=== PATIENT | male | born 1975 | race Caucasian/White ===

== ENCOUNTER 2020-09-07 10:18 | Outpatient (REF) | payer OTHER, SELFPAY ==
[2020-09-07 10:40] LABS: MANUAL DIFF FLAG NO
[2020-09-07 11:09] LABS: Basophils Percent Auto 0.5 % (0-2); Eosinophils Absolute Auto 0.2 X10*3/uL (0.0-0.4); Eosinophils Percent Auto 3.5 % (0-4); Hematocrit 49.6 % (42-52); Hemoglobin 16.7 g/dl (14.0-18.0); Imm Gran Abs Auto 0.03 X10*3/uL (0.00-0.03); Imm Gran Pct Auto 0.5 % (0.0-0.4); Lymphocytes Absolute Auto 2.5 X10*3/uL (1.2-4.9); Lymphocytes Percent Auto 37.6 % (20-40); Mean Corpuscular HGB Conc 33.7 g/dl (31.0-36.0); Mean Corpuscular Hemoglobin 29.9 pg (27.0-33.0); Mean Corpuscular Volume 88.9 fL (80-98); Mean Platelet Volume 10.6 fL (9.4-12.4); Monocytes Absolute Auto 0.6 X10*3/uL (0.1-1.2); Monocytes Percent Auto 9.3 % (2-11); Neutrophils Absolute Auto 3.2 X10*3/uL (2.0-8.3); Neutrophils Percent Auto 48.6 % (45-73); Platelet Count 206 X10*3/uL (160-400); Red Blood Count 5.58 X10*6/uL (4.60-5.80); Red Cell Distribution Width 12.2 % (11.0-16.0); White Blood Count 6.6 X10*3/uL (4.8-10.8)
[2020-09-07 11:40] LABS: Glucose Urine UA NEG (NEG); Leukocyte Esterase Urine NEG (NEG); Nitrite Urine NEG (NEG); Specific Gravity - Urine 1.025 (1.005-1.025); Urine Blood NEG (NEG); Urine Ketones NEG (NEG); Urine Protein NEG (NEG-TRACE)
[2020-09-07 11:43] LABS: Appearance Urine CLEAR; Color Urine YELLOW
[2020-09-07 12:18] LABS: PSA,Total (Free>4and<10) 0.35 ng/mL (0.00-4.00)
[2020-09-07 12:35] LABS: Alanine Aminotransferase 16 U/L (0-40); Albumin Level 4.2 g/dL (3.5-5.0); Alkaline Phosphatase 65 U/L (39-117); Anion Gap 16 (12-20); Aspartate Amino Transferase 16 U/L (5-37); Blood Urea Nitrogen 20 mg/dL (9-16); Calcium 9.1 mg/dL (8.4-10.2); Carbon Dioxide 23 mmol/L (22-29); Chloride 106 mmol/L (96-108); Cholesterol 243 mg/dL; Estimated Glomerular Filt Rate > 60; Glucose Fasting 101 mg/dL (60-99); HDL Cholesterol 66 mg/dL; LDL Cholesterol Calculated 147 mg/dl; Sodium 141 mmol/L (135-145); Total Protein 6.9 g/dL (6.5-8.0); Triglycerides 152 mg/dL
== END 2020-09-07 10:19 | disposition home or self-care (01) ==
LOC: HO.LNP 10:18
PROVIDERS: Visit Provider Internal Medicine
DX: Z00.00 Encounter for general adult medical examination without abnormal findings (principal); Z12.5 Encounter for screening for malignant neoplasm of prostate; E78.6 Lipoprotein deficiency
CPT/HCPCS: 80053; 80061; 81003; 84153; 85025

== ENCOUNTER 2021-11-14 10:49 | Outpatient (REF) | payer OTHER, SELFPAY ==
[2021-11-14 10:51] LABS: MANUAL DIFF FLAG NO
[2021-11-14 11:07] LABS: Appearance Urine CLEAR; Color Urine YELLOW; Glucose Urine UA NEG (NEG); Leukocyte Esterase Urine NEG (NEG); Nitrite Urine NEG (NEG); Urine Blood NEG (NEG); Urine Ketones NEG (NEG); Urine Protein NEG (NEG-TRACE)
[2021-11-14 11:08] LABS: Basophils Absolute Auto 0.1 X10*3/uL (0.0-0.2); Basophils Percent Auto 0.9 % (0-2); Eosinophils Absolute Auto 0.1 X10*3/uL (0.0-0.4); Eosinophils Percent Auto 2.4 % (0-4); Hematocrit 47.5 % (42.0-52.0); Hemoglobin 15.9 g/dl (14.0-18.0); Imm Gran Abs Auto 0.01 X10*3/uL (0.00-0.03); Imm Gran Pct Auto 0.2 % (0.0-0.4); Lymphocytes Absolute Auto 2.1 X10*3/uL (1.2-4.9); Lymphocytes Percent Auto 38.1 % (20-40); Mean Corpuscular HGB Conc 33.5 g/dl (31.0-36.0); Mean Corpuscular Hemoglobin 29.8 pg (27.0-33.0); Mean Corpuscular Volume 89.1 fL (80.0-98.0); Mean Platelet Volume 10.4 fL (9.4-12.4); Monocytes Absolute Auto 0.5 X10*3/uL (0.1-1.2); Monocytes Percent Auto 9.5 % (2-11); Neutrophils Absolute Auto 2.7 x10*3/uL (2.0-8.3); Neutrophils Percent Auto 48.9 % (45-73); Platelet Count 227 X10*3/uL (160-400); Red Blood Count 5.33 X10*6/uL (4.60-5.80); Red Cell Distribution Width 12.2 % (11.0-16.0); White Blood Count 5.5 X10*3/uL (4.8-10.8)
[2021-11-14 11:26] LABS: Alanine Aminotransferase 27 U/L (0-40); Alkaline Phosphatase 71 U/L (39-117); Anion Gap 12 (12-20); Aspartate Amino Transferase 20 U/L (5-37); Bilirubin Total 0.7 mg/dL (0.0-1.0); Blood Urea Nitrogen 19 mg/dL (9-16); Calcium 9.2 mg/dL (8.4-10.2); Carbon Dioxide 26 mmol/L (22-29); Chloride 105 mmol/L (96-108); Cholesterol 263 mg/dL; Estimated Glomerular Filt Rate > 60; Glucose Fasting 113 mg/dL (60-99); HDL Cholesterol 66 mg/dL; LDL Cholesterol Calculated 168 mg/dl; Sodium 139 mmol/L (135-145); Total Protein 6.8 g/dL (6.5-8.0); Triglycerides 149 mg/dL
[2021-11-14 11:46] LABS: PSA,Total (Free>4and<10) 0.44 ng/mL (0.00-4.00)
== END 2021-11-14 10:50 | disposition home or self-care (01) ==
LOC: HO.LNP 10:49
PROVIDERS: PCP Internal Medicine; Visit Provider Internal Medicine
DX: Z00.00 Encounter for general adult medical examination without abnormal findings (principal); Z12.5 Encounter for screening for malignant neoplasm of prostate; N41.1 Chronic prostatitis; E78.6 Lipoprotein deficiency
CPT/HCPCS: 80053; 80061; 81003; 84153; 85025

== ENCOUNTER 2022-02-20 10:51 | Emergency (ER) | payer OTHER, SELFPAY ==
--- NOTE | ~2022-02-20 | XR_ITS ---
EXAMINATION: XR CHEST CLINICAL INFORMATION: SOB COMPARISON: None TECHNIQUE: 2 views of the chest were obtained. FINDINGS: No significant abnormality is noted involving the heart, lungs, mediastinum, bony thorax or soft tissues. XR/XR chest 2V IMPRESSION: Unremarkable chest exam.
[2022-02-20 11:27] VITALS: BP 157/97; PULSE 66; RESP 18; TEMP 36.3; O2SAT 97; BMI 31.1
[2022-02-20 12:05] LABS: COVID-19 Test Negative (Negative); IDNOW Serial# 9DB6401D
--- NOTE | 2022-02-20 12:38 | ED.GENADULT ---
HPI - General Adult General Chief complaint: Upper Respiratory Symptoms Stated complaint: weak asthma Time Seen by Provider: 02/20/22 12:38 Source: patient Mode of arrival: ambulatory Limitations: no limitations History of Present Illness HPI narrative: Patient is a 46 year old male presenting to the emergency department today with a cough. Patient states that over the last week he has had a cough and felt generally unwell. Patient states that his daughter just tested positive for RSV. Patient denies any dizziness, lightheadedness, abdominal pain, nausea, vomiting, fever, chills, blurry vision, double vision, loss of vision, chest pain, difficulty breathing, shortness of breath, back pain, night sweats, pain with urination, increased urinary frequency, increased urinary urgency, blood in his urine or stool, syncope or a near syncopal episode, recent trauma or falls, bowel incontinence, bladder incontinence, bowel retention, bladder retention, or any other complaints at this time. Onset (ago): week(s) (1) Severity: mild Severity scale (1-10): 2 Relieving factors: none Exacerbating factors: none Associated symptoms: cough Treatments prior to arrival: none Related Data Previous Rx's Medication Instructions Recorded benzonatate 100 mg capsule 100 mg PO BID PRN cough 7 days #14 02/20/22 caps doxycycline hyclate 100 mg tablet 100 mg PO BID 7 days #14 tabs 02/20/22 prednisone 20 mg tablet 20 mg PO DAILY 12 days #26 tabs 02/20/22 Allergies Allergy/AdvReac Type Severity Reaction Status Date / Time No Known Allergies Allergy Unverified 02/26/20 15:43 shellfish Allergy Unknown Uncoded 09/12/16 00:00 Review of Systems Constitutional: Constitutional: Reports no additional constitutional complaints, Denies chills, Denies fever(s) and Denies night sweats Eyes: Eyes: Reports no additional eye complaints, Denies blurry vision, Denies change in vision, Denies diplopia, Denies eye discharge, Denies loss of vision and Denies eye pain ENT: Denies dizziness Cardiovascular: Cardiovascular: Reports no additional cardiovascular complaints, Denies chest pain, Denies lightheadedness, Denies Loss of Consciousness and Denies dyspnea Respiratory: Respiratory: Reports no additional respiratory complaints, Reports cough and Denies dyspnea Gastrointestinal: Gastrointestinal: Reports no additional gastrointestinal complaints, Denies abdominal pain, Denies melena, Denies hematochezia, Denies change in bowel habits and Denies change in stool character Genitourinary: Genitourinary: Reports no additional male genitourinary complaints, Denies hematuria, Denies oliguria, Denies difficulty urinating, Denies dysuria, Denies urinary frequency, Denies urinary hesitancy, Denies urinary incontinence and Denies urinary urgency Musculoskeletal: Musculoskeletal: Reports no additional musculoskeletal complaints, Denies numbness and Denies tingling Neurologic: Denies dizziness, Denies loss of vision, Denies numbness and Denies tingling Psychiatric: Psychiatric: Reports no additional psychiatric complaints Endocrine: Endocrine: Reports no additional endocrine complaints Hematologic/Lymphatic: Hematologic/Lymphatic: Reports no additional hematologic/lymphatic complaints Allergic/Immunologic: Allergic/Immunologic: Reports no additional allergic/immunologic complaints [facility] Past Medical History Attestation statement: The following information was validated with the patient. Source: old records reviewed Social History Social History Advance Directives: No Advance Directives Information Provided: No Physical Exam ED Vital Signs: Vital Signs - 24 hr 02/20/22 11:27 Temperature 97.3 F Pulse Rate 66 Respiratory Rate 18 Blood Pressure 157/97 H Pulse Oximetry 97 Oxygen Delivery Method Room Air BMI result Body Mass Index 31.1 Const General: cooperative, no acute distress, alert and awake Nutritional Appearance: well nourished Orientation/consciousness: patient oriented x3 Limitations: no limitations HENMT Head: Yes normal to inspection and Yes atraumatic Ears: hearing grossly normal bilaterally and external ears normal General nose exam: Normal external nose present, no nasal discharge noted and no epistaxis Face and sinus: Yes normal facial exam, No abrasion and No laceration Mouth: Normal oral and palatal mucosa present, no drooling and no muffled voice Eyes General: appearance normal, both eyes and all related structures Periorbital: periorbital findings normal Eyelids: Yes eyelids normal Conjunctivae: conjunctivae normal Pupils: Equal, round and reactive pupils present EOM: EOMs intact bilaterally Neck Neck: Yes normal visual inspection, Yes full ROM and Yes no lymphadenopathy Chest Chest palpation & inspection: normal inspection of the chest Resp Effort & Inspection: normal respiratory effort and able to speak in complete sentences Auscultation: clear to auscultation bilaterally Cardio Rate: regular rate Rhythm: regular rhythm GI Inspection: Yes normal to inspection Neuro General: patient oriented x3 and moves all extremities Cranial nerves: Yes Equal, round and reactive pupils present Cognition (Neuro): normal cognition Motor exam (neuro): 5/5 motor strength present throughout Sensory Exam: Normal double simultaneous stimulation for sensation Coordination: [id number] test normal Extrem General: Yes normal to inspection, Yes full ROM and Yes capillary refill normal Psych Appearance: grossly normal Mental Status: mental status grossly normal Affect: normal affect Attitude: cooperative Thought process: Normal thought process present Thought content: Normal thought content present Insight: Good insight present (Psych) Medical Decision Making MDM Narrative Medical decision making narrative: Patient is a 46 year old male presenting to the emergency department today with a cough and feeling generally unwell. Patient's physical exam was unremarkable. Patient's rapid COVID-19 test was negative. Patient's chest x-ray showed no acute process. I explained my physical exam findings as well as all test results to the patient. I answered all questions asked by the patient. I stressed the importance of the patient taking his medication as prescribed. I stressed the importance of the patient following up with his primary care provider. I stressed the importance of the patient returning to the emergency department immediately if his symptoms were to worsen or if he were to develop any dizziness, shortness of breath, difficulty breathing, chest pain, blurry vision, loss of vision, nausea, vomiting, abdominal pain, fever, chills, back pain, or any other complaints. Patient verbalized agreement and understanding with this treatment plan and discharge. Medical Records Medical records reviewed: Yes I reviewed the patient's medical records. Lab Data Lab results reviewed: Yes I reviewed the patient's lab results. Labs: Lab Results 02/20/22 Range/Units 11:35 COVID-19 ([facility]) Negative (Negative) COVID-19 Clin Com See Note Imaging Data Chest x-ray: Attestation: I personally reviewed and interpreted this imaging study as follows: My impression: No acute process. Radiologist's impression: EXAMINATION: XR CHEST CLINICAL INFORMATION: SOB COMPARISON: None TECHNIQUE: 2 views of the chest were obtained. FINDINGS: No significant abnormality is noted involving the heart, lungs, mediastinum, bony thorax or soft tissues. XR/XR chest 2V IMPRESSION: Unremarkable chest exam. Dictated By: Sesar Yo MD Signed By: Electronically signed by Sesar Yo MD 02/20/22 3656 Discharge Plan Discharge Clinical Impression: Upper respiratory infection Patient Disposition: Home, Self-Care Instructions: Upper Respiratory Infection (ED) Additional Instructions: Follow up with your primary care provider. Return to the emergency department immediately if your symptoms worsen or if you develop any dizziness, shortness of breath, difficulty breathing, chest pain, blurry vision, loss of vision, nausea, vomiting, abdominal pain, fever, chills, back pain, or any other complaints. Prescriptions: New prednisone 20 mg tablet 20 mg PO DAILY 12 Days Qty: 26 0RF Rx Instructions: Take 3 tablets for 5 days THEN; Take 2 tablets for 4 days THEN; Take 1 tablet for 3 days benzonatate 100 mg capsule 100 mg PO BID PRN (Reason: cough) 7 Days Qty: 14 0RF doxycycline hyclate 100 mg tablet 100 mg PO BID 7 Days Qty: 14 0RF Referrals: Jerry Khalil MD [Primary Care Provider] - Stand Alone Forms: Work/School Release Print Language: Romansh
== END 2022-02-20 13:45 | disposition home or self-care (01) ==
PROVIDERS: Emergency Provider Emergency Medicine; PCP Internal Medicine
DX: J06.9 Acute upper respiratory infection, unspecified (principal); Z20.822 Contact with and (suspected) exposure to COVID-19
CPT/HCPCS: 71046; 87635; 99282; 99283

== ENCOUNTER 2022-05-22 11:16 | Outpatient (REF) | payer OTHER, SELFPAY ==
[2022-05-22 12:34] LABS: Alanine Aminotransferase 19 U/L (0-40); Albumin Level 4.2 g/dL (3.5-5.0); Alkaline Phosphatase 76 U/L (39-117); Aspartate Amino Transferase 20 U/L (5-37); Bilirubin Direct 0.3 mg/dL (0.0-0.5); Bilirubin Total 0.8 mg/dL (0.0-1.0); Cholesterol 244 mg/dL; HDL Cholesterol 64 mg/dL; LDL Cholesterol Calculated 159 mg/dl; Total Protein 6.8 g/dL (6.5-8.0); Triglycerides 105 mg/dL
[2022-05-22 14:12] LABS: Reflex LDLD? No
== END 2022-05-22 11:17 | disposition home or self-care (01) ==
LOC: HO.LNP 11:16
PROVIDERS: Visit Provider Internal Medicine
DX: E78.00 Pure hypercholesterolemia, unspecified (principal)
CPT/HCPCS: 80061; 80076

== ENCOUNTER 2022-05-29 16:28 | Outpatient (REF) | payer OTHER, SELFPAY ==
[2022-06-06 19:28] LABS: Testosterone, Free 56.4 pg/mL (35.0-155.0); Testosterone, Total 308 ng/dL (250-1100)
== END 2022-05-29 16:29 | disposition home or self-care (01) ==
LOC: HO.LNP 16:28
PROVIDERS: Visit Provider Internal Medicine
DX: R53.83 Other fatigue (principal)
CPT/HCPCS: 84402; 84403

== ENCOUNTER 2022-12-04 11:14 | Outpatient (REF) | payer OTHER, SELFPAY ==
[2022-12-04 11:19] LABS: MANUAL DIFF FLAG NO
[2022-12-04 11:24] LABS: Basophils Percent Auto 0.6 % (0-2); Eosinophils Absolute Auto 0.1 X10*3/uL (0.0-0.4); Eosinophils Percent Auto 1.2 % (0-4); Hematocrit 48.5 % (42.0-52.0); Hemoglobin 16.7 g/dl (14.0-18.0); Imm Gran Abs Auto 0.02 X10*3/uL (0.00-0.03); Imm Gran Pct Auto 0.3 % (0.0-0.4); Lymphocytes Percent Auto 44.2 % (20-40); Mean Corpuscular HGB Conc 34.4 g/dl (31.0-36.0); Mean Corpuscular Hemoglobin 30.4 pg (27.0-33.0); Mean Corpuscular Volume 88.2 fL (80.0-98.0); Mean Platelet Volume 10.5 fL (9.4-12.4); Monocytes Absolute Auto 0.6 X10*3/uL (0.1-1.2); Monocytes Percent Auto 8.1 % (2-11); Neutrophils Absolute Auto 3.1 x10*3/uL (2.0-8.3); Neutrophils Percent Auto 45.6 % (45-73); Platelet Count 238 X10*3/uL (160-400); Red Cell Distribution Width 12.4 % (11.0-16.0); White Blood Count 6.8 X10*3/uL (4.8-10.8)
[2022-12-04 11:29] LABS: Appearance Urine Clear; Color Urine Yellow; Glucose Urine UA Negative (Negative); Leukocyte Esterase Urine Negative (Negative); Nitrite Urine Negative (Negative); PH 5.5 (5.0-9.0); Urine Blood Negative (Negative); Urine Ketones Negative (Negative); Urine Protein Negative (Neg-Trace)
[2022-12-04 11:33] LABS: Bacteria Urine None Seen (None Seen); Hyaline Casts Urine 0-2 /LPF (0-2); RBC Urine 0-2 /HPF (0-2); Squamous Epithelial Cell Urine 0-2 /HPF (0-2); WBC Urine 0-5 /HPF (0-5)
[2022-12-04 11:54] LABS: Alanine Aminotransferase 21 U/L (0-40); Albumin Level 4.3 g/dL (3.5-5.0); Alkaline Phosphatase 79 U/L (39-117); Anion Gap 13 (12-20); Aspartate Amino Transferase 20 U/L (5-37); Bilirubin Total 0.4 mg/dL (0.0-1.0); Blood Urea Nitrogen 16 mg/dL (9-16); Calcium 9.8 mg/dL (8.4-10.2); Carbon Dioxide 27 mmol/L (22-29); Chloride 104 mmol/L (96-108); Cholesterol 285 mg/dL; Estimated Glomerular Filt Rate > 60; Glucose Fasting 109 mg/dL (60-99); HDL Cholesterol 65 mg/dL; LDL Cholesterol Calculated 193 mg/dl; Potassium 4.1 mmol/L (3.3-5.1); Sodium 140 mmol/L (135-145); Total Protein 7.2 g/dL (6.5-8.0); Triglycerides 136 mg/dL
[2022-12-04 12:22] LABS: PSA,Total (Free>4and<10) 0.51 ng/mL (0.00-4.00)
== END 2022-12-04 11:15 | disposition home or self-care (01) ==
LOC: HO.LNP 11:14
PROVIDERS: Visit Provider Internal Medicine
DX: Z00.00 Encounter for general adult medical examination without abnormal findings (principal); E78.00 Pure hypercholesterolemia, unspecified; Z12.5 Encounter for screening for malignant neoplasm of prostate
CPT/HCPCS: 80053; 80061; 81001; 84153; 85025

== ENCOUNTER 2023-03-26 10:59 | Outpatient (REF) | payer OTHER, SELFPAY ==
[2023-03-26 12:23] LABS: Alanine Aminotransferase 38 U/L (0-40); Albumin Level 4.2 g/dL (3.5-5.0); Alkaline Phosphatase 78 U/L (39-117); Aspartate Amino Transferase 27 U/L (5-37); Bilirubin Direct 0.3 mg/dL (0.0-0.5); Bilirubin Total 1.1 mg/dL (0.0-1.0); Cholesterol 189 mg/dL (<200); HDL Cholesterol 74 mg/dL (>40); LDL Cholesterol Calculated 83 mg/dL (<100); Total Protein 7.1 g/dL (6.5-8.0); Triglycerides 163 mg/dL (<150)
== END 2023-03-26 11:00 | disposition home or self-care (01) ==
LOC: HO.LNP 10:59
PROVIDERS: Visit Provider Internal Medicine
DX: Z00.00 Encounter for general adult medical examination without abnormal findings (principal); E78.00 Pure hypercholesterolemia, unspecified; E78.6 Lipoprotein deficiency
CPT/HCPCS: 80061; 80076

== ENCOUNTER 2023-08-07 14:54 | Outpatient (AMB) | payer OTHER, SELFPAY ==
--- NOTE | 2023-08-07 14:57 | MHC.OFFVIS ---
Intake Vital Signs 08/07/23 15:05 Height 6 ft Weight 238 lb 2 oz BMI 32.3 BP 140/86 H Blood Pressure Location Lt brachial Position Sitting Pulse 89 Intake Visit Reasons: umbilical hernia Intake Note: Patient is seen in office for evaluation and treatment of an umbilical hernia. 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: No Accompanied by: Self / Same As Patient Allergies shellfish Allergy (Unknown, Uncoded 08/07/23 15:03) Unknown Medication List - Last Reconciled 08/07/23 by Juan David Singh MD albuterol sulfate 90 mcg/actuation 1 puff inhalation Q4H benzonatate 100 mg PO BID PRN 7 days doxycycline hyclate 100 mg PO BID 7 days fluticasone furoate-vilanterol 200-25 mcg/dose (Breo Ellipta) 1 ea inhalation DAILY omeprazole 20 mg PO DAILY prednisone 20 mg PO DAILY 12 days sildenafil 100 mg PO DAILY PRN HPI HPI Comments History of Present Illness Details 39-year-old male patient presenting for evaluation of an umbilical hernia. He 1st noted a small hernia approximately 3 years ago and over time has increased in size and is now quite noticeable. He denies significant pain, nausea, vomiting, or other intestinal symptoms. He denies previous surgery in this location. He is requesting repair of this umbilical hernia. He is employed at [employer] and requires significant amount of lifting and standing during the day. [facility] Family History Father Bladder cancer Cancer of kidney Prostate cancer Mother Breast cancer Social History Household Members: Children Housing: House Alcohol intake: current Alcohol intake frequency: holidays/special occasions only Patient Tobacco Use Status: Former Tobacco user Quit Date: 2020 Review of Systems Const All systems reviewed & are unremarkable except as noted in HPI and below Denies chills, Denies fever(s), Denies headache(s), Denies poor appetite and Denies weakness ENT Denies headache(s) Card Denies chest pain, Denies irregular heart rhythm, Denies palpitations and Denies dyspnea Resp Denies cough, Denies excessive phlegm production and Denies dyspnea GI Denies abdominal pain, Denies bloating, Denies change in bowel habits, Denies constipation, Denies heartburn, Denies diarrhea, Denies nausea and Denies vomiting Denies difficulty urinating and Denies urinary frequency Musc Denies back pain, Denies muscle weakness and Denies numbness Skin/Breast Denies changing lesions and Denies unusual bruising Neuro Denies headache(s), Denies numbness, Denies paresthesias and Denies weakness Psych Denies anxiety and Denies depression Endo Denies palpitations Felix/Lymph Denies lymphadenopathy Physical Exam Vital Signs: Last Vital Signs Pulse 89 08/07/23 15:05 BP 140/86 H 08/07/23 15:05 BMI result Body Mass Index 32.3 Const General: cooperative and no acute distress Nutritional Appearance: well nourished Orientation/consciousness: patient oriented x3 Limitations: no limitations HEENT Head: Yes normocephalic and Yes atraumatic Ears: hearing grossly normal bilaterally Resp Effort & Inspection: normal respiratory effort, no audible wheezes, no cough and no respiratory distress Cardio Jugular venous distension: no JVD GI Other: Soft, nondistended, large umbilical hernia measuring at least 5 cm in diameter. Hernia is reducible but increases in size with standing and Valsalva maneuvers. Inspection: Yes normal to inspection Abdomen image: 1. 5 cm reducible umbilical hernia Skin Other: Warm, dry, no rash Neuro General: patient oriented x3 Extrem General: Yes no clubbing, cyanosis or edema Assessment & Plan Assessment & Plan (1) Umbilical hernia: Code(s): K42.9 - Umbilical hernia without obstruction or gangrene Qualifiers: Obstruction and gangrene presence: without obstruction or gangrene Qualified Code(s): K42.9 - Umbilical hernia without obstruction or gangrene Plan 47-year-old male patient presenting with a reducible large umbilical hernia. He is requested repair of this umbilical hernia which certainly seems to be a good idea. I reviewed the procedure, risks, and alternatives and he consents to repair of the umbilical hernia with mesh. Coding Level of Care Code New Pt Level 4 (34045) Diagnoses Umbilical hernia without obstruction and without gangrene K42.9 Obstruction and gangrene presence: without obstruction or gangrene
[2023-08-07 15:05] VITALS: BP 140/86; PULSE 89; BMI 32.3
== END 2023-08-07 15:26 | disposition home or self-care (01) ==
PROVIDERS: PCP Internal Medicine; Visit Provider Surgery
DX: K42.9 Umbilical hernia without obstruction or gangrene (principal)
CPT/HCPCS: 99204; 99214

== ENCOUNTER → 2023-08-07 14:54 | Outpatient (BNVA) | payer OTHER, SELFPAY | PROVIDERS: PCP Internal Medicine; Visit Provider Surgery ==

== ENCOUNTER 2023-09-19 12:01 | Emergency (ER) | payer OTHER, SELFPAY ==
--- NOTE | ~2023-09-19 | XR_ITS ---
EXAMINATION: XR ELBOW, LEFT CLINICAL INFORMATION: Left elbow bruising COMPARISON: None available. TECHNIQUE: AP, lateral, and oblique views of the left elbow. FINDINGS: The bones and soft tissues are normal. No fracture or joint effusion. Alignment is anatomic. Joint spaces are maintained. Small enthesophyte at the triceps insertion. XR/XR elbow LT min 3V IMPRESSION: No fracture. Small enthesophyte at the triceps tendon insertion.
[2023-09-19 13:21] VITALS: BP 174/102; PULSE 73; RESP 16; TEMP 36.3; O2SAT 98; BMI 31.9
--- NOTE | 2023-09-19 13:23 | ED.GENADULT ---
HPI - General Adult General Chief complaint: Extremity Injury, Upper Stated complaint: L Elbow Infection Time Seen by Provider: 09/19/23 14:32 Source: patient Mode of arrival: ambulatory Limitations: no limitations History of Present Illness HPI narrative: Patient is a 47-year-old male presenting to the emergency department with complaint of discoloration to left elbow for the past 4 days. He denies any injury or other trauma. Denies any known insect bites. He reports the area is nonpainful, nonpruritic. He denies any fever. He denies any decreased range of motion. States that the area began as a small reddish purple area and the redness has since spread. He denies any weakness, numbness, tingling to his arm. complaint: left elbow redness Onset (ago): day(s) Location: left and upper extremity Associated symptoms: denies other symptoms Treatments prior to arrival: none Related Data Home Medications ?Medication ?Instructions ?Recorded ?Confirmed albuterol sulfate 90 mcg/actuation 1 puff inhalation Q4H 02/27/22 08/07/23 aerosol inhaler fluticasone furoate 200 1 ea inhalation DAILY 02/27/22 08/07/23 mcg-vilanterol 25 mcg/dose inhalation powder (Breo Ellipta) omeprazole 20 mg capsule,delayed 20 mg PO DAILY 02/27/22 08/07/23 release sildenafil 100 mg tablet 100 mg PO DAILY PRN 02/27/22 08/07/23 Previous Rx's ?Medication ?Instructions ?Recorded benzonatate 100 mg capsule 100 mg PO BID PRN cough 7 days #14 02/20/22 caps doxycycline hyclate 100 mg tablet 100 mg PO BID 7 days #14 tabs 02/20/22 prednisone 20 mg tablet 20 mg PO DAILY 12 days #26 tabs 02/20/22 Allergies Allergy/AdvReac Type Severity Reaction Status Date / Time shellfish Allergy Mild Unknown Uncoded 09/19/23 13:25 Review of Systems Review of Systems: As per HPI. Yes all other systems are reviewed and are negative Constitutional: Constitutional: Reports as per HPI PMFSH Family History Family History Father Bladder cancer Cancer of kidney Prostate cancer Mother Breast cancer Social History Social History Household Members: Children Housing: House Alcohol intake: current Alcohol intake frequency: holidays/special occasions only Patient Tobacco Use Status: Former Tobacco user Quit Date: 2020 Advance Directives: No Advance Directives Information Provided: No Physical Exam ED Vital Signs: Vital Signs - 24 hr 09/19/23 13:21 09/19/23 14:43 Temperature 97.4 F Pulse Rate 73 76 Respiratory Rate 16 16 Blood Pressure 174/102 H 148/101 H Pulse Oximetry 98 98 Oxygen Delivery Method Room Air Room Air BMI result Body Mass Index 31.9 Vital signs have been reviewed and appear to be correct. Blood pressure elevated. Heart rate normal. Respiratory rate normal. Temperature normal. Oxygen saturation normal. Const General: cooperative, healthy appearing and no acute distress Orientation/consciousness: oriented to person, oriented to place, oriented to time and patient oriented x3 Limitations: no limitations HENMT Head: Yes normocephalic and Yes atraumatic Ears: external ears normal General nose exam: Normal external nose present Face and sinus: Yes face symmetric Mouth: oropharynx normal and moist mucous membranes Throat: Yes uvula midline Eyes Pupils: Equal, round and reactive pupils present Neck Neck: Yes normal visual inspection and Yes supple Resp Effort & Inspection: normal respiratory effort and able to speak in complete sentences Auscultation: clear to auscultation bilaterally Cardio Rate: regular rate Rhythm: regular rhythm Heart sounds: S1 normal heart sound present and S2 normal heart sound present GI Palpation (GI): Soft to palpation and nontender Auscultation: normoactive bowel sounds General: Yes no CVA tenderness Back/Spine/Pelvis Back: no CVA tenderness Skin General skin exam: elasticity normal and turgor normal Neuro General: oriented to person, oriented to place, oriented to time, patient oriented x3, moves all extremities, no focal motor deficits and CN's II-XI intact bilaterally Cranial nerves: Yes Equal, round and reactive pupils present Cognition (Neuro): normal cognition Extrem Other: General: Yes full ROM, Yes no pedal edema and Yes no calf tenderness Right upper extremity: elbow/forearm Details: distal pulses intact and other (blanchable erythema as noted in photo, consistent with healing ecchymosis); no tenderness, no swelling, no unusual warmth, no crepitus and no deformity Psych Mental Status: mental status grossly normal Affect: normal affect Thought process: Normal thought process present Course Course Course Narrative: RME: 47-year-old male with history of asthma, tendinitis here for eval of atraumatic bruising/swelling of left elbow x4 days. admits to seeing a purple spot on his elbow and notes concern for infection. denies known insect or tick bites. denies pain to the area. denies fever, chills, n/v, rashes. slight ecchymosis to left ebow. not TTP. no palpable deformity. FROM to left elbow. 2+ radial pulses. Labs and imaging ordered. Full HPI, ROS and PE to be performed by the primary ED provider. Medical Decision Making Medical Decision Making [facility] Narrative: Patient is a 47-year-old male presenting to the emergency department with complaint of discoloration to left elbow for the past 4 days. On exam patient is awake, A+Ox3, hypertensive, VS otherwise WNL, afebrile, normal neurological exam without focal deficits, physical exam findings as above. Given reported symptoms and physical exam findings, initial differential includes contusion, cellulitis, bursitis. Do not suspect septic joint. Not consistent with erythema migrans. Labs notable for no leukocytosis. X-ray notable for no fracture or effusion, small enthesophyte. My interpretation is in agreement with the radiologist's interpretation. Results discussed with patient. Feel symptoms are most consistent with contusion, do not suspect cellulitis. Concerning symptoms for which patient should return to the emergency department were discussed at bedside. Advised patient to monitor area daily for any changes. Patient verbalized understanding of and agreement with plan. Differential Diagnosis Differential Diagnoses: The differential diagnosis associated with the presentation includes As per [facility]. Admission/Observation Consideration of admission/observation: Escalation of care including admission/observation considered Patient would have been admitted to the hospital had their work up had any findings where hospital admission was appropriate and their clinical presentation warranted hospital admission. Lab Data [facility] Lab Attestation statement: I reviewed the patient's lab results. As per [facility] 09/19/23 13:38 09/19/23 13:38 Labs: Lab Results 09/19/23 Range/Units 13:38 WBC 6.9 (4.8-10.8) X10*3/uL RBC 5.73 (4.60-5.80) X10*6/uL Hgb 16.8 (14.0-18.0) g/dl Hct 49.4 (42.0-52.0) % MCV 86.2 (80.0-98.0) fL MCH 29.3 (27.0-33.0) pg MCHC 34.0 (31.0-36.0) g/dl RDW 12.5 (11.0-16.0) % Plt Count 199 (160-400) X10*3/uL MPV 9.3 L (9.4-12.4) fL Immature Gran % (Auto) 0.4 (0.0-0.4) % Neut % (Auto) 57.4 (45-73) % Lymph % (Auto) 31.5 (20-40) % [place] % (Auto) 9.1 (2-11) % Eos % (Auto) 1.0 (0-4) % Baso % (Auto) 0.6 (0-2) % Lymph # (Auto) 2.2 (1.2-4.9) X10*3/uL [place] # (Auto) 0.6 (0.1-1.2) X10*3/uL Eos # (Auto) 0.1 (0.0-0.4) X10*3/uL Baso # (Auto) 0.0 (0.0-0.2) X10*3/uL Abs Immat Gran (auto) 0.03 (0.00-0.03) X10*3/uL Absolute Neuts (auto) 3.9 (2.0-8.3) x10*3/uL Absolute Nucleated RBC 0.000 (0.0-0.012) X10*3/uL Nucleated RBC % (auto) 0.0 (0.0-0.2) /100WBC Sodium 141 (135-145) mmol/L Potassium 3.9 (3.3-5.1) mmol/L Chloride 105 (96-108) mmol/L Carbon Dioxide 26 (22-29) mmol/L Anion Gap 14 (12-20) BUN 18 H (9-16) mg/dL Creatinine 0.90 (0.5-1.4) mg/dL Estim Creat Clear Calc 126.6 Estimated GFR > 60 Random Glucose 90 (60-115) mg/dL Uric Acid 6.7 (3.4-7.0) mg/dL Calcium 9.7 (8.4-10.2) mg/dL Total Bilirubin 0.9 (0.0-1.0) mg/dL AST 35 (5-37) U/L ALT 46 H (0-40) U/L Alkaline Phosphatase 81 (39-117) U/L Total Protein 7.4 (6.5-8.0) g/dL Albumin 4.4 (3.5-5.0) g/dL Independent Interpretation I performed an independent interpretation of an: Plain X-Ray Interpretation: X-ray notable for no fracture or effusion, small enthesophyte. Radiology Impression Discussion of test interpretation with radiology: I have reviewed the radiologist's reading. Radiologist Impression: XR/XR elbow LT min 3V IMPRESSION: No fracture. Small enthesophyte at the triceps tendon insertion. External Record Review External record reviewed: Inpatient record, Office record and Outpatient record Discharge Plan Discharge Clinical Impression: Contusion of left elbow Patient Disposition: Home, Self-Care Instructions: Contusion in Adults (ED) Additional Instructions: You were evaluated in the emergency department today for redness to your left elbow. Your x-ray and labs were reassuring. Your symptoms are likely due to a contusion, also known as a bruise. The symptoms should resolve on their own. Return to the emergency department if you develop increasing swelling, redness, warmth, pain, fever or any other concerning symptoms. Prescriptions: No Action prednisone 20 mg tablet 20 mg PO DAILY 12 Days Qty: 26 0RF Rx Instructions: Take 3 tablets for 5 days THEN; Take 2 tablets for 4 days THEN; Take 1 tablet for 3 days benzonatate 100 mg capsule 100 mg PO BID PRN (Reason: cough) 7 Days Qty: 14 0RF doxycycline hyclate 100 mg tablet 100 mg PO BID 7 Days Qty: 14 0RF omeprazole 20 mg capsule,delayed release(DR/EC) 20 mg PO DAILY albuterol sulfate 90 mcg/actuation HFA aerosol inhaler 1 puff inhalation Q4H fluticasone furoate-vilanterol [Breo Ellipta] 200-25 mcg/dose blister with device 1 ea inhalation DAILY sildenafil 100 mg tablet 100 mg PO DAILY PRN Stand Alone Forms: Work/School Release Print Language: Greenlandic
[2023-09-19 13:43] LABS: MANUAL DIFF FLAG NO
[2023-09-19 13:46] LABS: Basophils Percent Auto 0.6 % (0-2); Eosinophils Absolute Auto 0.1 X10*3/uL (0.0-0.4); Hematocrit 49.4 % (42.0-52.0); Hemoglobin 16.8 g/dl (14.0-18.0); Imm Gran Abs Auto 0.03 X10*3/uL (0.00-0.03); Imm Gran Pct Auto 0.4 % (0.0-0.4); Lymphocytes Absolute Auto 2.2 X10*3/uL (1.2-4.9); Lymphocytes Percent Auto 31.5 % (20-40); Mean Corpuscular Hemoglobin 29.3 pg (27.0-33.0); Mean Corpuscular Volume 86.2 fL (80.0-98.0); Mean Platelet Volume 9.3 fL (9.4-12.4); Monocytes Absolute Auto 0.6 X10*3/uL (0.1-1.2); Monocytes Percent Auto 9.1 % (2-11); Neutrophils Absolute Auto 3.9 x10*3/uL (2.0-8.3); Neutrophils Percent Auto 57.4 % (45-73); Platelet Count 199 X10*3/uL (160-400); Red Blood Count 5.73 X10*6/uL (4.60-5.80); Red Cell Distribution Width 12.5 % (11.0-16.0); White Blood Count 6.9 X10*3/uL (4.8-10.8)
[2023-09-19 14:04] LABS: Uric Acid 6.7 mg/dL (3.4-7.0)
[2023-09-19 14:05] LABS: Alanine Aminotransferase 46 U/L (0-40); Albumin Level 4.4 g/dL (3.5-5.0); Alkaline Phosphatase 81 U/L (39-117); Anion Gap 14 (12-20); Aspartate Amino Transferase 35 U/L (5-37); Bilirubin Total 0.9 mg/dL (0.0-1.0); Blood Urea Nitrogen 18 mg/dL (9-16); Calcium 9.7 mg/dL (8.4-10.2); Carbon Dioxide 26 mmol/L (22-29); Chloride 105 mmol/L (96-108); Creatinine Clr Calc Pharmacy 126.6; Estimated Glomerular Filt Rate > 60; Glucose Random 90 mg/dL (60-115); Potassium 3.9 mmol/L (3.3-5.1); Sodium 141 mmol/L (135-145); Total Protein 7.4 g/dL (6.5-8.0)
[2023-09-19 14:43] VITALS: BP 148/101; PULSE 76; RESP 16; O2SAT 98
[2023-09-19 16:41] VITALS: BP 150/100; PULSE 69; RESP 20; TEMP 36.5; O2SAT 97
[2023-09-19 16:45] VITALS: BP 150/100; PULSE 69; RESP 18; TEMP -17.7; TEMP 0; O2SAT 100
== END 2023-09-19 16:46 | disposition home or self-care (01) ==
PROVIDERS: Physician Assistant Medical; Emergency Provider Student in an Organized Health Care Education/Training Program; PCP Internal Medicine
DX: S50.02XA Contusion of left elbow, initial encounter (principal); M25.522 Pain in left elbow; X58.XXXA Exposure to other specified factors, initial encounter; Y93.9 Activity, unspecified; Y92.9 Unspecified place or not applicable; Y99.8 Other external cause status; Z79.899 Other long term (current) drug therapy
CPT/HCPCS: 36415; 73080; 80053; 84550; 85025; 99283

== ENCOUNTER 2023-10-08 05:56 | Day surgery (SDC) | payer OTHER, SELFPAY ==
[2023-10-04 15:31] VITALS: BMI 32.3
[2023-10-08] VITALS (7 sets, daily range): BP systolic 130–146; BP diastolic 85–107; PULSE 83–101; RESP 14–20; TEMP 36.9–37.4; O2SAT 97–98
--- OUTSIDE RECORDS SUMMARY | 2023-10-08 05:59 | XMS_ITS | Patient Health Record ---
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 Phone Jerry Khalil Primary Care Provider [phone] ALLERGIES Allergen (clinical drug ingredient) Drug/Non Drug Allergy documented on EMR Reaction Allergy Type Onset Date Status Shellfish (FN) shellfish (uncoded) hives Allergy Active RESULTS Component Value Reference Range Notes Complete Blood Count Auto Di ff Reviewed date:12/04/2022 12:30:27 PM Interpretation: Performing Lab:[facility], [address] [place] [phone] Notes/Report: White Blood Count 6.8 4.8-10.8 X10*3/uL Red Blood Count 5.50 4.60-5.80 X10*6/uL Hemoglobin 16.7 14.0-18.0 g/dl Hematocrit 48.5 42.0-52.0 % Mean Corpuscular Volume 88.2 80.0-98.0 fL Mean Corpuscular Hemoglobin 30.4 27.0-33.0 pg Mean Corpuscular HGB Conc 34.4 31.0-36.0 g/dl Red Cell Distribution Width 12.4 11.0-16.0 % Platelet Count 238 160-400 X10*3/uL Mean Platelet Volume 10.5 9.4-12.4 fL Neutrophils Percent Auto 45.6 45-73 % Imm Gran Pct Auto 0.3 0.0-0.4 % Lymphocytes Percent Auto 44.2 20-40 % Monocytes Percent Auto 8.1 2-11 % Eosinophils Percent Auto 1.2 0-4 % Basophils Percent Auto 0.6 0-2 % NRBC Pct Auto 0.0 0.0-0.2 /100WBC Neutrophils Absolute Auto 3.1 2.0-8.3 x10*3/u L Imm Gran Abs Auto 0.02 0.00-0.03 X10*3/uL Lymphocytes Absolute Auto 3.0 1.2-4.9 X10*3/u L Monocytes Absolute Auto 0.6 0.1-1.2 X10*3/uL Eosinophils Absolute Auto 0.1 0.0-0.4 X10*3/u L Basophils Absolute Auto 0.0 0.0-0.2 X10*3/uL NRBC Abs Auto 0.000 0.0-0.012 X10*3/uL Comprehensive [place]. Panel Fa st Reviewed date:12/04/2022 12:30:09 PM Interpretation: Performing Lab:[facility], [address] [place] [phone] Notes/Report: Sodium 140 135-145 mmol/L Potassium 4.1 3.3-5.1 mmol/L Chloride 104 96-108 mmol/L Carbon Dioxide 27 22-29 mmol/L Anion Gap 13 12-20 Blood Urea Nitrogen 16 9-16 mg/dL Creatinine 1.06 0.5-1.4 mg/dL Estimated Glomerular Filt Rate > 60 NOTE: For -Vietnamese individuals, multiply the result by 1.210. Chronic Kidney Disease: Estimated GFR < 60 mL/min/1.73m2 Severe Kidney Disease: Estimated GFR < 15 mL/min/1.73m2 Glucose Fasting 109 60-99 mg/dL A fasting glucose from 100-125 mg/dl is considered impaired (pre-diabetes). Calcium 9.8 8.4-10.2 mg/dL Bilirubin Total 0.4 0.0-1.0 mg/dL Aspartate Amino Transferase 20 5-37 U/L Alanine Aminotransferase 21 0-40 U/L Total Protein 7.2 6.5-8.0 g/dL Albumin Level 4.3 3.5-5.0 g/dL Alkaline Phosphatase 79 39-117 U/L Lipid Panel Reviewed date:12/04/2022 12:29:22 PM Interpretation: Performing Lab:[facility], [address] [place] [phone] Notes/Report: Triglycerides 136 Desirable Triglyceride: less than 150 mg/dL Borderline High Triglyceride 150-199 mg/dL High Triglyceride: 200-499 mg/dL Very High Triglyceride: greater than or equal to 5OO mg/dL Cholesterol 285 Desirable Cholesterol: less than 200 mg/dL Borderline High Cholesterol: 200-239 mg/dL High Cholesterol: greater than 239 mg/dL LDL Cholesterol Calculated 193 Desirable LDL: less than 100 mg/dL Near Optimal/Above Optimal LDL: 110-129 mg/dL Borderline High LDL: 130-159 mg/dL High LDL: 160-189 mg/dL Very High LDL: greater than or equal to 190 mg/dL HDL Cholesterol 65 Desirable HDL: greater than 40 mg/dL Note: This HDL assay may give artificially low results in patients with liver disease. PSA,Total (Free>4and<10) Reviewed date:12/04/2022 12:25:09 PM Interpretation: Performing Lab:[facility], [address] [place] [phone] Notes/Report: PSA,Total (Free>4and<10) 0.51 0.00-4.00 ng/mL A Free PSA was not performed: The percentage of Free PSA can be used to enhance the differentiation of prostate cancer from benign prostatic disease in subjects whose PSA levels are between 4.0 and 10.0 ng/mL. For subjects whose PSA levels are below 4.0 or above 10.0 ng/mL, the risk of prostate cancer is determined on the basis of the PSA alone. Therefore the % Free PSA is recommended only for those subjects whose PSA levels are between 4.0 and 10.0 ng/mL. PSA methodology: Monae Alinity i Chemiluminescent Microparticle Immunoassay (CMIA) UA ClnCatch+Micro w/rflx Cul t Reviewed date:12/04/2022 12:30:44 PM Interpretation: Performing Lab:[facility], [address] [place] [phone] Notes/Report: [id number] Urine, Clean Catch Color Urine Yellow Appearance Urine Clear PH 5.5 5.0-9.0 Glucose Urine UA Negative Negative mg/dL Urine Blood Negative Negative Specific [place] - Urine 1.020 1.005-1.025 Urine Protein Negative Neg-Trace mg/dL Urine Ketones Negative Negative mg/dL Nitrite Urine Negative Negative Leukocyte Esterase Urine Negative Negative RBC Urine 0-2 0-2 /HPF WBC Urine 0-5 0-5 /HPF Squamous Epithelial Cell Urine 0-2 0-2 /HPF Bacteria Urine None Seen None Seen Hyaline Casts Urine 0-2 0-2 /LPF Occult Blood, Stool, Guaiac Reviewed date:12/18/2022 04:36:02 PM Interpretation:Negative Performing Lab: Notes/Report: Negative Occult Blood, Stool, Guaiac Neg Hold Gold Reviewed date:03/26/2023 12:52:50 PM Interpretation: Performing Lab:[facility], [address] [place] [phone] Notes/Report: Hold Gold See Note Specimen held untested for 24 hours; Call to request Chemistry testing. Liver Panel Reviewed date:03/26/2023 05:36:57 PM Interpretation: Performing Lab:[facility], [address] [place] [phone] Notes/Report: Bilirubin Total 1.1 0.0-1.0 mg/dL Bilirubin Direct 0.3 0.0-0.5 mg/dL Aspartate Amino Transferase 27 5-37 U/L Alanine Aminotransferase 38 0-40 U/L Total Protein 7.1 6.5-8.0 g/dL Albumin Level 4.2 3.5-5.0 g/dL Alkaline Phosphatase 78 39-117 U/L Lipid Panel Reviewed date:03/26/2023 05:40:23 PM Interpretation: Performing Lab:[facility], [address] [place] [phone] Notes/Report: Triglycerides 163 <150 mg/dL Desirable Triglyceride: less than 150 mg/dL Borderline High Triglyceride 150-199 mg/dL High Triglyceride: 200-499 mg/dL Very High Triglyceride: greater than or equal to 5OO mg/dL Cholesterol 189 <200 mg/dL Desirable Cholesterol: less than 200 mg/dL Borderline High Cholesterol: 200-239 mg/dL High Cholesterol: greater than 239 mg/dL LDL Cholesterol Calculated 83 <100 mg/dL Desirable LDL: less than 100 mg/dL Near Optimal/Above Optimal LDL: 110-129 mg/dL Borderline High LDL: 130-159 mg/dL High LDL: 160-189 mg/dL Very High LDL: greater than or equal to 190 mg/dL HDL Cholesterol 74 >40 mg/dL Desirable HDL: greater than 40 mg/dL Note: This HDL assay may give artificially low results in patients with liver disease. Complete Blood Count Auto Di ff Reviewed date:09/19/2023 04:14:50 PM Interpretation: Performing Lab:[facility], [address] [place] [phone] Notes/Report: White Blood Count 6.9 4.8-10.8 X10*3/uL Red Blood Count 5.73 4.60-5.80 X10*6/uL Hemoglobin 16.8 14.0-18.0 g/dl Hematocrit 49.4 42.0-52.0 % Mean Corpuscular Volume 86.2 80.0-98.0 fL Mean Corpuscular Hemoglobin 29.3 27.0-33.0 pg Mean Corpuscular HGB Conc 34.0 31.0-36.0 g/dl Red Cell Distribution Width 12.5 11.0-16.0 % Platelet Count 199 160-400 X10*3/uL Mean Platelet Volume 9.3 9.4-12.4 fL Neutrophils Percent Auto 57.4 45-73 % Imm Gran Pct Auto 0.4 0.0-0.4 % Lymphocytes Percent Auto 31.5 20-40 % Monocytes Percent Auto 9.1 2-11 % Eosinophils Percent Auto 1.0 0-4 % Basophils Percent Auto 0.6 0-2 % NRBC Pct Auto 0.0 0.0-0.2 /100WBC Neutrophils Absolute Auto 3.9 2.0-8.3 x10*3/u L Imm Gran Abs Auto 0.03 0.00-0.03 X10*3/uL Lymphocytes Absolute Auto 2.2 1.2-4.9 X10*3/u L Monocytes Absolute Auto 0.6 0.1-1.2 X10*3/uL Eosinophils Absolute Auto 0.1 0.0-0.4 X10*3/u L Basophils Absolute Auto 0.0 0.0-0.2 X10*3/uL NRBC Abs Auto 0.000 0.0-0.012 X10*3/uL Comprehensive Met. Panel Reviewed date:09/19/2023 04:13:26 PM Interpretation: Performing Lab:[facility], [address] [place] [phone] Notes/Report: Sodium 141 135-145 mmol/L Potassium 3.9 3.3-5.1 mmol/L Chloride 105 96-108 mmol/L Carbon Dioxide 26 22-29 mmol/L Anion Gap 14 12-20 Blood Urea Nitrogen 18 9-16 mg/dL Creatinine 0.90 0.5-1.4 mg/dL Creatinine Clr Calc Pharmacy 126.6 eGFR (calculated from the MDRD study equation) and eCrCl (calculated from the Cockcroft-Gault equation) are based on different parameters and may not yield comparable results. If eCrCl result is absurd, please check patient's height/weight. Estimated Glomerular Filt Rate > 60 NOTE: For -Vietnamese individuals, multiply the result by 1.210. Chronic Kidney Disease: Estimated GFR < 60 mL/min/1.73m2 Severe Kidney Disease: Estimated GFR < 15 mL/min/1.73m2 Glucose Random 90 60-115 mg/dL Calcium 9.7 8.4-10.2 mg/dL Bilirubin Total 0.9 0.0-1.0 mg/dL Aspartate Amino Transferase 35 5-37 U/L Alanine Aminotransferase 46 0-40 U/L Total Protein 7.4 6.5-8.0 g/dL Albumin Level 4.4 3.5-5.0 g/dL Alkaline Phosphatase 81 39-117 U/L Uric Acid Reviewed date:09/19/2023 04:12:09 PM Interpretation: Performing Lab:[facility], [address] [place] [phone] Notes/Report: Uric Acid 6.7 3.4-7.0 mg/dL XR elbow LT min 3V Reviewed date:09/19/2023 04:05:33 PM Interpretation: Performing Lab: Notes/Report: [address] [address] XRay Report Signed Patient: Kris Johnson MR#: [id number] : 1975 Acct:[id number] Age/Sex: 47 / M ADM Date: 09/19/23 Loc: HO.ED Attending Dr: Ordering Physician: Aida Dupont Date of Service: 09/19/23 Procedure(s): XR elbow LT min 3V Accession Number(s): [id number] cc: Jerry Khalil MD; Aida Dupont EXAMINATION: XR ELBOW, LEFT CLINICAL INFORMATION: Left elbow bruising COMPARISON: None available. TECHNIQUE: AP, lateral, and oblique views of the left elbow. FINDINGS: The bones and soft tissues are normal. No fracture or joint effusion. Alignment is anatomic. Joint spaces are maintained. Small enthesophyte at the triceps insertion. XR/XR elbow LT min 3V IMPRESSION: No fracture. Small enthesophyte at the triceps tendon insertion. 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 REASON FOR REFERRAL Reason umbilical hernia Diagnosis 1 Umbilical hernia wit hout obstruction and without gangrene (K42.9) Referral Organization Jerry Khalil MD Referring Provider First Name Jerry Referring Provider Last Name Simran Referring Provider Speciality Internal M edicine Referred Provider Juan David Singh Referred Provider Specialty Surgery General Notes Ellie Schofield 11:36:32 AM EST > send notesChandu Annette 07/16/2023 02:23:03 PM EST > info faxed Referral Priority Routine Referral Appointment Date 07/31/2023 MEDICATIONS Medication SIG (Take, Route, Frequency, Duration) Notes Start Date End Date Status Bactroban 2 % 1 application to affected area Externally Three times a day for 10 days 06/27/2016 Not-Taking Fluticasone Propionate 50 MCG/ACT SHAKE LIQUID AND USE 1 SPRAY IN EACH NOSTRIL EVERY DAY for 60 Active Cyclobenzaprine HCl 5 MG 1 tablet Orally 2 times a day for 10 days 08/09/2015 Not-Taking Atorvastatin Calcium 40 MG 1 tablet Oral ly Once a day for 90 days 12/18/2022 Active Omeprazole 20 MG TAKE 1 CAPSULE BY MOUTH EVERY DAY for 90 Active Breo Ellipta 200-25 MCG/ACT INHALE 1 PUFF BY MOUTH EVERY DAY for 90 Active Albuterol Sulfate HFA 108 (90 Base) MCG/ACT INHALE 1 PUFF BY MOUTH EVERY 4 HOURS. Active Sildenafil Citrate 100 MG TAKE ONE TABLE T BY MOUTH EVERY DAY NEEDED Active IMMUNIZATIONS Vaccine Route Administration Date Status Comme nts Fluarix Quadrivalent Unknown 03/13/2017 Administered Wa Zyncrosabrina's Covid Vaccine Unknown 09/24/2020 Administered Pfizer Fluarix Quadrivalent Unknown 08/12/2019 Refused SOCIAL HISTORY Tobacco Use: Social History Observation Description Date Details (start date - stop date) Former Smoker NA - NA Sex Assigned At : Social History Observation Description Sex Assigned At Unknown Tobacco Use/Smoking Question Answer Notes Patient is a former smoker How long has it been since y ou last smoked? 1-5 years Additional Findings: Tobacco Non-User Fo rmer smoker, currently using no form of tobacco Alcohol Screen Question Answer Notes Did you have a drink contain ing alcohol in the past year? Yes How often did you have a dri nk containing alcohol in the past year? 2 to 3 times a week (3 points) How many drinks did you have on a typical day when you were drinking in the past year? 5 or 6 drinks (2 points) How often did you have 6 or more drinks on one occasion in the past year? 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) Active confirmed 293317100 Problem Mild intermittent asthma without complication (J45.20) Active confirmed 826710780 Problem Environmental allergies (Z91.09) Active confirmed 316740053 Problem Allergic rhinitis, unspecified seasonality, unspecified trigger (J30.9) Active confirmed 62986446 Problem Hypercholesterolemia (E78.00) Active confirmed Hypercholestero lemia (75715705) 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 Notalgia parest hetica (792625762) VITAL SIGNS Blood pressure diastolic 90 mm Hg 07/16/2023 nicky ght at home is 235 Height 72 in 07/16/2023 weight at home is 235 Blood pressure systolic 120 mm Hg 07/16/2023 weig ht at home is 235 Weight 235 lbs 07/16/2023 weight at home is 235 BMI 31.87 kg/m2 07/16/2023 weight at home is 235 Encounters Encounter Location Date Provider Diagnosis Jerry Khalil MD [address] [place] [id number] 12/18/2022 Jerry Khalil Mild intermittent as thma without complication J45.20 ; Adult general medical exam Z00.00 ; Notalgia paresthetica R20.2 ; Erectile dysfunction, unspecified erectile dysfunction type N52.9 ; Elevated cholesterol/high density lipoprotein ratio E78.6 ; Colon cancer screening Z12.11 and Depression screening Z13.31 Jerry Khalil MD [address] [place] [id number] 12/04/2022 Jerry Khalil Blood tests for rout ine general physical examination Z00.00 and Hypercholesterolemia E78.00 Jerry Khalil MD [address] [place] [id number] 03/26/2023 Jerry Khalil Elevated cholesterol /high density lipoprotein ratio E78.6 and Adult general medical exam Z00.00 Jerry Khalil MD [address] [place] [id number] 07/16/2023 Jerry Khalil Umbilical hernia wit hout obstruction and without gangrene K42.9 and Elevated cholesterol/high density lipoprotein ratio E78.6 Jerry Khalil MD [address] [place] [id number] 11/10/2022 Jerry Khalil MD [address] [place] [id number] 12/04/2022 Jerry Khalil Environmental allerg ies Z91.09 Jerry Khalil MD [address] [place], [place] [id number] 07/31/2023 Jerry Khalil MD [address] [place], [place] [id number] 09/21/2023 Jerry Khalil ASSESSMENTS Encounter Date Diagnosis Assessment Notes Treatment Notes Treatment Clinical Notes 12/18/2022 Mild intermittent as thma without complication (ICD-10 - J45.20) doing well on meds, will continue current regiment 12/18/2022 Adult general medica l exam (ICD-10 - Z00.00) labs reviewed and discussed with patient, , Patient verbalizes understanding of medications side effects, interactions and warnings. 12/04/2022 Hypercholesterolemia (ICD-10 - E78.00) 12/04/2022 Blood tests for rout ine general physical examination (ICD-10 - Z00.00) 03/26/2023 Elevated cholesterol /high density lipoprotein ratio (ICD-10 - E78.6) 03/26/2023 Adult general medica l exam (ICD-10 - Z00.00) 07/16/2023 Umbilical hernia wit hout obstruction and without gangrene (ICD-10 - K42.9) referral to dr jimenez 07/16/2023 Elevated cholesterol /high density lipoprotein ratio (ICD-10 - E78.6) doing well on meds, will continue current regiment 12/04/2022 Environmental allerg ies (ICD-10 - Z91.09) 12/18/2022 Notalgia paresthetic a (ICD-10 - R20.2) no treatment 12/18/2022 Erectile dysfunction , unspecified erectile dysfunction type (ICD-10 - N52.9) doing well on cialis, will contnue current regiment 12/18/2022 Elevated cholesterol /high density lipoprotein ratio (ICD-10 - E78.6) started new medicaton 12/18/2022 Colon cancer screeni ng (ICD-10 - Z12.11) guaiac negative 12/18/2022 Depression screening (ICD-10 - Z13.31) negative screen PLAN OF TREATMENT Next Appt Details Provider Name:Jerry Frazier ier, 12/17/2023 07:30:00 AM, [address], [address], [place], [place], [phone], Provider Name:Jerry garcia, 12/24/2023 04:00:00 PM, [address], [address], [place], [place], [id number], Insurance Providers Payer Name Payer Address Payer Phone Subscriber Number Group Number Insured Name Patient Relationship to Insured Coverage Start Date Coverage End Date [facility] [address] [place], [place] [phone] [id number] Kris Johnson Self - patient is the insured
[2023-10-08] MEDS: Lactated Ringers 1,000 ML 100 ML IVCONT (06:39)
--- NOTE | 2023-10-08 07:15 | HO.ANESPROP2 ---
Documented by User: Caroline Coates NP 10/04/23 14:25 HPI - Anesthesia Eval Consult details Narrative: 48yo M for Repair Hernia Umbilical Reducible with Mesh PMFSH Active Problems Active Problems: All Active Problems Asthma (Acute) Umbilical hernia (Acute) Past Medical History Medical History (Updated 10/04/23 @ 15:26 by Alba Jacques RN) GERD (gastroesophageal reflux disease) Asthma Family History Family History Father Bladder cancer Cancer of kidney Prostate cancer Mother Breast cancer Surgical History Surgical History (Updated 10/04/23 @ 15:35 by Alba Jacques RN) Surgical history unknown Social History Social History Household Members: Children Housing: House Alcohol intake: current Alcohol intake frequency: holidays/special occasions only Patient Tobacco Use Status: Former Tobacco user Quit Date: 2020 Tobacco use type: Cigarette Advance Directives: No Advance Directives Information Provided: Yes Advance Directives on File: No Meds Allergies Allergy/AdvReac Type Severity Reaction Status Date / Time shellfish derived Allergy Unknown Unknown Verified 10/04/23 15:28 Home Medications ?Medication ?Instructions ?Recorded ?Confirmed ?Last Taken ?Type albuterol sulfate 90 mcg/actuation 1 puff inhalation Q4H 02/27/22 10/04/23 Unknown History aerosol inhaler fluticasone furoate 200 1 ea inhalation DAILY 02/27/22 10/04/23 10/08/23 History mcg-vilanterol 25 mcg/dose inhalation powder (Breo Ellipta) omeprazole 20 mg capsule,delayed 20 mg PO DAILY 02/27/22 10/04/23 10/08/23 History release sildenafil 100 mg tablet 100 mg PO DAILY PRN Erectile 02/27/22 10/04/23 Unknown History Dysfunction Exam Pertinent Lab Results Pertinent Lab Results: Laboratory Tests 09/19/23 13:38 WBC 6.9 Hgb 16.8 Hct 49.4 Plt Count 199 Sodium 141 Potassium 3.9 Chloride 105 Carbon Dioxide 26 BUN 18 H Creatinine 0.90 Assessment and Plan Assessment Anesthesia Assessment: Chart Reviewed Documented by User: Pricila Grady DO 10/08/23 07:21 COUNT INCLUDES THE [facility] Past Medical History Medical History (Updated 10/04/23 @ 15:26 by Alba Jacques RN) GERD (gastroesophageal reflux disease) Asthma Family History Family History Father Bladder cancer Cancer of kidney Prostate cancer Mother Breast cancer Family history of problems with anesthesia: No Surgical History Surgical History (Updated 10/04/23 @ 15:35 by Alba Jacques RN) Surgical history unknown History of Problems with Anesthesia: No Social History Social History Household Members: Children Housing: House Alcohol intake: current Alcohol intake frequency: holidays/special occasions only Patient Tobacco Use Status: Former Tobacco user Quit Date: 2020 Tobacco use type: Cigarette Advance Directives: No Advance Directives Information Provided: Yes Advance Directives on File: No Meds Allergies Allergy/AdvReac Type Severity Reaction Status Date / Time shellfish derived Allergy Unknown Unknown Verified 10/04/23 15:28 Home Medications ?Medication ?Instructions ?Recorded ?Confirmed ?Last Taken ?Type albuterol sulfate 90 mcg/actuation 1 puff inhalation Q4H 02/27/22 10/04/23 Unknown History aerosol inhaler fluticasone furoate 200 1 ea inhalation DAILY 02/27/22 10/04/23 10/08/23 History mcg-vilanterol 25 mcg/dose inhalation powder (Breo Ellipta) omeprazole 20 mg capsule,delayed 20 mg PO DAILY 02/27/22 10/04/23 10/08/23 History release sildenafil 100 mg tablet 100 mg PO DAILY PRN Erectile 02/27/22 10/04/23 Unknown History Dysfunction Exam Exam Date and Time: October 08, 2023 0713 Height,Weight and Vital Signs: Height 6 ft Weight 107.955 kg Vital Signs Temperature 98.6 F 10/08/23 06:17 Pulse Rate 83 10/08/23 06:17 Respiratory Rate 18 10/08/23 06:17 Blood Pressure 146/107 H 10/08/23 06:17 Pulse Oximetry 97 10/08/23 06:17 Oxygen Delivery Method Room Air 10/08/23 06:17 Temperature 98.6 F 10/08/23 06:17 Pulse Rate 83 10/08/23 06:17 Respiratory Rate 18 10/08/23 06:17 Blood Pressure 139/96 H 10/08/23 06:33 Pulse Oximetry 97 10/08/23 06:17 Oxygen Delivery Method Room Air 10/08/23 06:17 Airway Mallampati Class: I TM Dist: >3cm Neck ROM: Full Loose/Missing/Broken Teeth: No (patient denies any loose orbroken teeth) Heart: S1S2 Lungs: CTAB Assessment and Plan Assessment Anesthesia Assessment: Anesthesia Plan Discussed and Chart Reviewed Final Anesthetic Review Family History of Problems with Anesthesia: No History of Problems with Anesthesia: No NPO: Yes ASA Class: II Final Preanesthetic Review: No Changes in Pt Med Stat, Meds/Allgs Chart Reviewed, Consent Obtained/Reviewed and Anes Risks/Benef Reviewed Patient Risk: Low Procedure Risk: Low Anesthetic Plan Anesthetic Plan: GA and Agree w/ Assess. and Plan Disposition: Standard PACU
--- NOTE | 2023-10-08 07:26 | MHC.SHP ---
Pre-Procedural Eval Section A - 24 Hr Update-Section A only Date of Service: 10/08/23 The patient is an INPATIENT: No Changes since office visit: Yes Patient answered all questions; No Cold of Flu in the past 2 weeks, No New Medical Problems and No Changes in Medication The patient has been examined within 24 hours of the surgical procedure. The History & Physical has been completed within 30 days and I have reviewed it.: No Section B - Complete if H&P > 30 days Chief Complaint: Umbilical hernia without obstruction or gangrene Details of Present Illness: No changes since the previous visit. Relevant Family History (Specify if Yes): No Relevant Social History: None Present Medications: see Short Stay Collaborative assessment Medical History: No relevant PMH History of Previous Operations: No relevant previous surgery Allergies: Allergies Allergy/AdvReac Type Severity Reaction Status Date / Time shellfish derived Allergy Unknown Unknown Verified 10/04/23 15:28 Review of Systems Sugical H&P ROS: Negative: Constitution, Cardiovascular, Respiratory, Neurological, Psychiatric, Hem-Onc, Allergic/Immunologic, Gastrointestinal, Genitourinary, Musculoskeletal, Integumentary, Endocrine and Eyes/Ears/Nose/Throat Exam Surgical H&P Exam: Normal: HEENT, Normal: Heart, Normal: Lungs, Normal: Extremities, Normal: Abdomen, Normal: Skin and Normal: Neurological Plan Diagnosis/Plan: Unchanged I have reviewed the history and physical and performed a pertinent physical examination on my patient. No changes have occurred unless specified. Time Spent With Patient Time: Total time managing care of this patient today ____ minutes.
--- NOTE | 2023-10-08 07:29 | P.OP_ITS ---
Operative Note Operative Note Date of Service: 10/08/23 Narrative: Preoperative diagnosis: Umbilical hernia, 2 cm, reducible Postoperative diagnosis: Same Procedure: Repair of umbilical hernia with mesh, reducible Surgeon: Juan David Singh MD Application Assistant: Lexie Amaral PA-C Anesthesia: General, LMA Indications for procedure: 48-year-old male patient presenting with a large umbilical hernia which increases in size with lifting and straining but reduces with light pressure. Operative findings: 2 cm hernia defect, reducible hernia at umbilicus Specimen: None Estimated blood loss: Less than 2 mL Complications: None Procedure details: Patient was brought to the OR and placed in a supine position. After administering general anesthesia, the patient's abdomen was prepped with ChloraPrep and draped in a sterile fashion. A surgical time-out was called the consent confirmed. Patient received preoperative antibiotics and Venodyne boots were in place. Local anesthesia consisting of 0.5% Sensorcaine plain was infiltrated in a transverse fashion over the umbilicus. Incision was then made with a 15 blade and carried down through subcutaneous tissue, to the hernia sac. Electrocautery was then used to dissect the hernia sac down to the fascial defect. Margins of the fascial defect were then further defined using electrocautery. The hernia sac was then reduced and a preperitoneal space created below the fascia. An 8 cm round Ventralex mesh was then obtained. This was deployed within the preperitoneal space and secured in 4 quadrants using the 0 Tycron suture. Fascia was then closed over the mesh incorporating the mesh in the closure using [id number] 0 Tycron sutures. Additional local anesthesia was then infiltrated into the fascia and subcutaneous tissue at this time. Wounds were then irrigated with saline solution and suctioned dry. Umbilical skin was then reattached to the fascia using a 3-0 Polysorb suture. Dermis was reapproximated using interrupted 3-0 Polysorb sutures. Skin was then closed using a running subcuticular 4-0 Polysorb suture. Steri-Strips, 2 x 2 gauze and Tegaderm were then applied. The patient tolerated the procedure well. Sponge, instrument, and needle counts reported as correct. Patient was transferred to PACU in stable condition.
== END 2023-10-08 09:33 | disposition home or self-care (01) ==
PROVIDERS: PCP Internal Medicine; Visit Provider Surgery
PROC: (CPT 49591; principal; 2023-10-08 07:30)
DX: K42.9 Umbilical hernia without obstruction or gangrene (principal); K21.9 Gastro-esophageal reflux disease without esophagitis; J45.909 Unspecified asthma, uncomplicated; Z79.51 Long term (current) use of inhaled steroids; Z79.899 Other long term (current) drug therapy; Z87.891 Personal history of nicotine dependence
CPT/HCPCS: 49591; C1781; J0131; J0690; J1100; J1170; J1885; J2250; J2405; J2704; J2795; J3010

== ENCOUNTER → 2023-10-08 05:56 | Outpatient (BNV) | payer OTHER, SELFPAY | PROVIDERS: PCP Internal Medicine; Visit Provider Surgery | DX: K42.9 Umbilical hernia without obstruction or gangrene (principal) | CPT/HCPCS: 49591 ==

== ENCOUNTER 2023-10-18 10:59 | Outpatient (AMB) | payer OTHER, SELFPAY ==
--- NOTE | 2023-10-18 11:00 | MHC.OFFVIS ---
Vital Signs 10/18/23 11:07 Height 6 ft Weight 241 lb BMI 32.7 BP 161/102 H Blood Pressure Location Lt brachial Position Sitting Pulse 82 Intake Visit Reasons: S/P umbilical hernia w/mesh Intake Note: Patient is seen in office for post op assessment post umbilical hernia repair. Pt c/o: still feels a lump in the area, minor bruising and pain, taking pain meds as needed Op: 10/08/23 Side Seam Tender Required: No Accompanied by: Self / Same As Patient Allergies shellfish derived Allergy (Unknown, Verified 10/18/23 11:13) Unknown Medication List - Last Reconciled 10/23/23 by Juan David Singh MD albuterol sulfate 90 mcg/actuation 1 puff inhalation Q4H fluticasone furoate-vilanterol 200-25 mcg/dose (Breo Ellipta) 1 ea inhalation DAILY hydrocodone-acetaminophen 5-325 mg 1 tab PO Q6H PRN omeprazole 20 mg PO DAILY oxycodone 5 mg PO Q6H PRN sildenafil 100 mg PO DAILY PRN HPI Comments Details: 48-year-old male patient returning 1 week following repair of an umbilical hernia with mesh. He has some soreness in the incision but generally feels improved. There is some swelling under the umbilicus but denies any changes with coughing or straining. He is eating well and denies any bowel changes. He denies fever or chills. [facility] Medical History (Updated 10/04/23 @ 15:26 by Alba Jacques RN) GERD (gastroesophageal reflux disease) Asthma Surgical History (Updated 10/17/23 @ 12:21 by CARMELA Fontaine) H/O umbilical hernia repair (10/08/23) Surgical history unknown Family History Father Bladder cancer Cancer of kidney Prostate cancer Mother Breast cancer Social History Household Members: Children Housing: House Alcohol intake: current Alcohol intake frequency: holidays/special occasions only Comment: counts correct Patient Tobacco Use Status: Former Tobacco user Quit Date: 2020 Tobacco use type: Cigarette Physical Exam Vital Signs: Last Vital Signs Pulse 82 10/18/23 11:07 BP 161/102 H 10/18/23 11:07 BMI result Body Mass Index 32.7 Const General: comfortable and no acute distress Nutritional Appearance: well nourished Resp Effort & Inspection: normal respiratory effort GI Other: Well-healed umbilical incision with some swelling of the umbilical skin suggestive of an underlying seroma. No changes noted with Valsalva maneuvers. Assessment & Plan Assessment & Plan (1) Umbilical hernia: Code(s): K42.9 - Umbilical hernia without obstruction or gangrene Category: Medical Qualifiers: Obstruction and gangrene presence: without obstruction or gangrene Qualified Code(s): K42.9 - Umbilical hernia without obstruction or gangrene Plan Patient returns status post repair of an umbilical hernia with mesh. His wounds are clean and intact. There appears to be a small seroma below the incision which we will observe. He should call should the seroma increase in size otherwise follow-up in 1 month. He should continue to avoid lifting greater than 10 lb. Coding Level of Care Code Global (66263) Diagnoses Umbilical hernia without obstruction and without gangrene K42.9 Obstruction and gangrene presence: without obstruction or gangrene
[2023-10-18 11:07] VITALS: BP 161/102; PULSE 82; BMI 32.7
== END 2023-10-18 11:14 | disposition home or self-care (01) ==
PROVIDERS: PCP Internal Medicine; Visit Provider Surgery
DX: K42.9 Umbilical hernia without obstruction or gangrene (principal)
CPT/HCPCS: 99212

== ENCOUNTER → 2023-10-18 10:59 | Outpatient (BNVA) | payer OTHER, SELFPAY | PROVIDERS: PCP Internal Medicine; Visit Provider Surgery ==

== ENCOUNTER 2023-11-02 09:58 | Outpatient (AMB) | payer OTHER, SELFPAY ==
--- NOTE | 2023-11-02 10:04 | MHC.OFFVIS ---
Vital Signs 11/02/23 10:08 Height 6 ft Weight 244 lb BMI 33.1 BP 180/117 H Blood Pressure Location Lt brachial Position Sitting Pulse 99 Intake Visit Reasons: one month post umbilical hernia w/mesh Intake Note: Patient is seen in office for one month follow up visit, post umbilical hernia repair. Pt c/o: denies any concerns at the time of visit It Technical Architect Required: No Accompanied by: Self / Same As Patient Allergies shellfish derived Allergy (Unknown, Verified 11/02/23 10:09) Unknown HPI Comments Details: 48-year-old male patient returning 1 month following repair of an umbilical hernia with mesh. He denies any current symptoms and feels ready to return to normal activity. [facility] Medical History (Updated 10/04/23 @ 15:26 by Alba Jacques RN) GERD (gastroesophageal reflux disease) Asthma Surgical History H/O umbilical hernia repair (10/08/23) Surgical history unknown Family History Father Bladder cancer Cancer of kidney Prostate cancer Mother Breast cancer Social History Household Members: Children Housing: House Alcohol intake: current Alcohol intake frequency: holidays/special occasions only Comment: counts correct Patient Tobacco Use Status: Former Tobacco user Quit Date: 2020 Tobacco use type: Cigarette Physical Exam Vital Signs: Last Vital Signs Pulse 99 11/02/23 10:08 BP 180/117 H 11/02/23 10:08 BMI result Body Mass Index 33.1 Const General: no acute distress GI Other: Soft, nondistended, nontender, well-healed umbilical incision. No changes noted with Valsalva maneuvers. No palpable seroma remains. Extrem General: Yes normal to inspection Assessment & Plan Assessment & Plan (1) Umbilical hernia: Code(s): K42.9 - Umbilical hernia without obstruction or gangrene Category: Medical Qualifiers: Obstruction and gangrene presence: without obstruction or gangrene Qualified Code(s): K42.9 - Umbilical hernia without obstruction or gangrene Plan Patient returns following repair of an umbilical hernia with mesh. His wounds are clean and intact with no evidence of recurrent disease or infection. He may resume normal activity without restrictions and should follow up as needed. Coding Level of Care Code Global (98985) Diagnoses Umbilical hernia without obstruction and without gangrene K42.9 Obstruction and gangrene presence: without obstruction or gangrene
[2023-11-02 10:08] VITALS: BP 180/117; PULSE 99; BMI 33.1
== END 2023-11-02 10:18 | disposition home or self-care (01) ==
PROVIDERS: PCP Internal Medicine; Visit Provider Surgery
DX: K42.9 Umbilical hernia without obstruction or gangrene (principal)
CPT/HCPCS: 99024

== ENCOUNTER → 2023-11-02 09:58 | Outpatient (BNVA) | payer OTHER, SELFPAY | PROVIDERS: PCP Internal Medicine; Visit Provider Surgery ==

== ENCOUNTER 2023-12-17 11:33 | Outpatient (REF) | payer OTHER, SELFPAY ==
[2023-12-17 11:36] LABS: MANUAL DIFF FLAG NO
[2023-12-17 11:55] LABS: Basophils Absolute Auto 0.1 X10*3/uL (0.0-0.2); Basophils Percent Auto 0.9 % (0-2); Eosinophils Absolute Auto 0.2 X10*3/uL (0.0-0.4); Eosinophils Percent Auto 2.3 % (0-4); Imm Gran Abs Auto 0.02 X10*3/uL (0.00-0.03); Imm Gran Pct Auto 0.3 % (0.0-0.4); Lymphocytes Absolute Auto 2.4 X10*3/uL (1.2-4.9); Lymphocytes Percent Auto 36.3 % (20-40); Mean Corpuscular HGB Conc 33.3 g/dl (31.0-36.0); Mean Corpuscular Hemoglobin 29.9 pg (27.0-33.0); Mean Corpuscular Volume 89.6 fL (80.0-98.0); Mean Platelet Volume 9.8 fL (9.4-12.4); Monocytes Absolute Auto 0.6 X10*3/uL (0.1-1.2); Monocytes Percent Auto 8.5 % (2-11); Neutrophils Absolute Auto 3.4 x10*3/uL (2.0-8.3); Neutrophils Percent Auto 51.7 % (45-73); Platelet Count 256 X10*3/uL (160-400); Red Blood Count 5.36 X10*6/uL (4.60-5.80); Red Cell Distribution Width 12.4 % (11.0-16.0); White Blood Count 6.6 X10*3/uL (4.8-10.8)
[2023-12-17 11:57] LABS: Appearance Urine Clear; Color Urine Yellow; Glucose Urine UA Negative (Negative); Leukocyte Esterase Urine Negative (Negative); Nitrite Urine Negative (Negative); Specific Gravity - Urine 1.025 (1.005-1.025); Urine Blood Negative (Negative); Urine Ketones Negative (Negative); Urine Protein Negative (Neg-Trace)
[2023-12-17 12:03] LABS: Bacteria Urine None Seen (None Seen); Hyaline Casts Urine 0-2 /LPF (0-2); RBC Urine 0-2 /HPF (0-2); Squamous Epithelial Cell Urine 0-2 /HPF (0-2); WBC Urine 0-5 /HPF (0-5)
[2023-12-17 12:18] LABS: Alanine Aminotransferase 39 U/L (0-40); Albumin Level 4.2 g/dL (3.5-5.0); Alkaline Phosphatase 98 U/L (39-117); Anion Gap 15 (12-20); Aspartate Amino Transferase 27 U/L (5-37); Bilirubin Total 0.6 mg/dL (0.0-1.0); Blood Urea Nitrogen 21 mg/dL (9-16); Calcium 9.7 mg/dL (8.4-10.2); Carbon Dioxide 26 mmol/L (22-29); Chloride 105 mmol/L (96-108); Cholesterol 213 mg/dL (<200); Estimated Glomerular Filt Rate > 60; Glucose Fasting 108 mg/dL (60-99); HDL Cholesterol 70 mg/dL (>40); LDL Cholesterol Calculated 95 mg/dL (<100); Potassium 4.5 mmol/L (3.3-5.1); Sodium 141 mmol/L (135-145); Total Protein 7.3 g/dL (6.5-8.0); Triglycerides 241 mg/dL (<150)
[2023-12-17 12:26] LABS: PSA,Total (Free>4and<10) 0.55 ng/mL (0.00-4.00)
== END 2023-12-17 11:34 | disposition home or self-care (01) ==
LOC: HO.LNP 11:33
PROVIDERS: Visit Provider Internal Medicine
DX: Z00.00 Encounter for general adult medical examination without abnormal findings (principal); E78.00 Pure hypercholesterolemia, unspecified; Z12.5 Encounter for screening for malignant neoplasm of prostate
CPT/HCPCS: 80053; 80061; 81001; 84153; 85025

== ENCOUNTER 2024-12-22 10:59 | Outpatient (REF) | payer BC, SELFPAY ==
[2024-12-22 11:02] LABS: MANUAL DIFF FLAG NO
[2024-12-22 11:39] LABS: Appearance Urine Clear; Glucose Urine UA Negative (Negative); PH 6.0 (5.0-9.0); Specific Gravity - Urine 1.015 (1.005-1.025)
[2024-12-22 11:43] LABS: Hematocrit 48.7 % (42.0-52.0); Hemoglobin 16.3 g/dl (14.0-18.0); Imm Gran Abs Auto 0.03 X10*3/uL (0.00-0.03); Imm Gran Pct Auto 0.4 % (0.0-0.4); Lymphocytes Absolute Auto 2.4 X10*3/uL (1.2-4.9); Mean Corpuscular HGB Conc 33.5 g/dl (31.0-36.0); Mean Corpuscular Hemoglobin 30.0 pg (27.0-33.0); Mean Corpuscular Volume 89.5 fL (80.0-98.0); NRBC Abs Auto 0.000 X10*3/uL (0.0-0.012); NRBC Pct Auto 0.0 /100WBC (0.0-0.2); Platelet Count 217 X10*3/uL (160-400); Red Blood Count 5.44 X10*6/uL (4.60-5.80); White Blood Count 7.0 X10*3/uL (4.8-10.8)
[2024-12-22 11:54] LABS: Alanine Aminotransferase 32 U/L (0-40); Albumin Level 4.3 g/dL (3.5-5.0); Alkaline Phosphatase 83 U/L (39-117); Anion Gap 11 (12-20); Aspartate Amino Transferase 26 U/L (5-37); Blood Urea Nitrogen 16 mg/dL (9-16); Calcium 9.3 mg/dL (8.4-10.2); Carbon Dioxide 28 mmol/L (22-29); Chloride 107 mmol/L (96-108); Cholesterol 205 mg/dL (<200); Estimated Glomerular Filt Rate > 60; HDL Cholesterol 68 mg/dL (>40); Potassium 4.0 mmol/L (3.3-5.1); Sodium 142 mmol/L (135-145); Total Protein 6.7 g/dL (6.5-8.0); Triglycerides 172 mg/dL (<150)
--- OUTSIDE RECORDS SUMMARY | 2024-12-22 12:01 | XMS_ITS ---
Author Name [facility] Organization Unknown Problems Problem Status Onset Date Problem Type Date of Resoluti on Source Mallet finger of right hand active 2023-05-18 ProblemAct ENS_AONECT Encounters Encounter Type Encounter Reason Primary Diagnosis Location Date Ambulatory [facility] 07/12/2023 Ambulatory [facility] 05/18/2023 Ambulatory [facility] [place] 05/08/2023
[2024-12-22 12:16] LABS: PSA,Total (Free>4and<10) 0.53 ng/mL (0.00-4.00)
== END 2024-12-22 11:00 | disposition home or self-care (01) ==
LOC: HO.LNP 10:59
PROVIDERS: Visit Provider Internal Medicine
DX: Z00.00 Encounter for general adult medical examination without abnormal findings (principal); E78.6 Lipoprotein deficiency
CPT/HCPCS: 80053; 80061; 81001; 84153; 85025